=== PATIENT | male | born 1965 | race Caucasian/White ===

== ENCOUNTER 2020-03-22 08:00 | Emergency (ER) | payer SELFPAY ==
[2020-03-22] MEDS ORDERED: Ketorolac Tromethamine 60 MG/2 ML VIAL ONE (08:48)
--- NOTE | 2020-03-22 09:08 | RAD ---
EXAM: Left rib series with chest x-ray HISTORY: Left rib pain after being taken down by police. COMPARISON: None FINDINGS: Single view of the chest shows a normal sized cardiomediastinal silhouette. There is no izabel dence of consolidation, mass, or pleural effusion. Multiple views of the left ribs shows no evidence of displaced rib fracture. No underlying pleural th ickening or pneumothorax are seen. IMPRESSION: 1. No evidence of displaced rib fracture. 2. No evidence of acute cardiopulmonary disease.
== END 2020-03-22 09:38 ==
LOC: NAV ERS 08:00
DX: S22.42XA Multiple fractures of ribs, left side, initial encounter for closed fracture (principal); S60.512A Abrasion of left hand, initial encounter; F15.10 Other stimulant abuse, uncomplicated; F17.210 Nicotine dependence, cigarettes, uncomplicated; V89.2XXA Person injured in unspecified motor-vehicle accident, traffic, initial encounter
CPT/HCPCS: 96372; J1885